=== PATIENT | female | born 1995 | race Caucasian/White ===

== ENCOUNTER 2022-07-12 12:42 | Inpatient (IN) ==
[2022-07-12] MEDS ORDERED: Fluticasone NASAL SPRAY 50MCG 16 gm SPRAY BTL BOTH NARES SCH (16:00)
[2022-07-12] MEDS ORDERED: Witch Hazel PAD JAR TOPICAL PRN (17:38)
[2022-07-12] MEDS ORDERED: Dibucaine 1% OINT 28.35 GM TUBE PR PRN (17:38)
[2022-07-12] MEDS ORDERED: Oxytocin 10 UNITS/ML 1 ML VIAL IM ONE (17:38)
[2022-07-13 06:30] LABS: ABS Eosinophils 0.1 10^3/ul (0-0.6); ABS Lymphocytes 2.2 10^3/ul (1.0-4.8); ABS Monocytes 0.8 10^3/ul (0-0.8); ABS Neutrophils 8.6 10^3/ul (1.5-7.7); Eosinophil % 0.4 %; Hematocrit 29 % (35-47); Hemoglobin 10.2 g/dL (12.0-16.0); Lymphocyte % 18.8 %; Mean Corpuscular HGB Conc 35 g/dL (31-36); Mean Corpuscular Hemoglobin 33 pg (27-31); Mean Corpuscular Volume 93 fL (80-97); Mean Platelet Volume 8.3 fL (7.4-10.4); Platelet Count 237 10^3/uL (150-450); Red Blood Count 3.09 10^6 /uL (3.70-4.87); Red Cell Distribution Width 13 % (10-15); White Blood Count 11.7 10^3/uL (3.5-10.8)
[2022-07-13] MEDS ORDERED: LoraTADine 10 mg TAB (NF) PO SCH ×2 (09:00→21:00)
[2022-07-13] MEDS ORDERED: FLOVENT 110 MCG INH SCH ×2 (09:00→21:00)
[2022-07-13] MEDS ORDERED: Fluticasone NASAL SPRAY 50MCG 16 gm SPRAY BTL BOTH NARES SCH (21:00)
[2022-07-14 08:53] VITALS: BP 95/54
== END 2022-07-14 14:20 | disposition home or self-care (01) | DRG 560 ==
LOC: MCHOBOUT 12:42 → MCHOB 13:33
PROVIDERS: ADMIT Midwife; ATTEND Midwife